=== PATIENT | male | born 1990 | race Caucasian/White ===

== ENCOUNTER → 2018-05-16 07:30 | Outpatient (CLI) | payer OTHER, SELFPAY ==
--- NOTE | 2018-05-16 07:30 | MASS_PTH ---
PATIENT: MANUEL GONZALEZ LOC: [facility] U#:[id number] AGE/SX: 34/M ROOM: RE05/16/[address]: Dr. Umang Pizarro MD : 1990 BED: DIS: SPEC #: [id number] RECD: 05/18/18 07:14 STATUS: MICHAEL JERILYN #: [id number] MELY: 05/16/18 07:[address]: Umang Pizarro DEPT: SURGICAL PATHOLOGY RECD BY: Luana Muhammad ENTERED: 05/18/18 11:07 SP TYPE: Mass OTHR DR: No Primary Care Phys Tissues: Scrotum, NOS Procedures: Surgery Specimen Level III HEADER OPERATION: Excision scrotal nodule PRE-OP DIAGNOSIS: Right scrotal nodule TISSUE SUBMITTED: Right scrotal nodule MICROSCOPIC DIAGNOSIS Right scrotal nodule, biopsy: Epidermal inclusion cyst. SJ:lópez 05/19/18 MICROSCOPIC DESCRIPTION Slides are reviewed. GROSS DESCRIPTION Received in fixative is one container labeled with the patient's name and designated scrotal nodule. The specimen consists of an ellipse of light ramsey soft tissue measuring 1.7 x 1.2 x 1 cm. The specimen is bisected to reveal cheesy white material. The specimen is totally submitted in one cassette. / AM:lópez 05/18/18 TC:5 CPT: 77003
[2018-05-16 07:36] VITALS: BMI 23.2
== END ==
PROVIDERS: Referring Provider Surgery; Visit Provider Surgery
DX: N49.2 Inflammatory disorders of scrotum (principal)
CPT/HCPCS: 88304; 88305

== ENCOUNTER → 2018-12-07 10:42 | Outpatient (CLI) | payer OTHER, SELFPAY ==
[2018-12-07 06:37] VITALS: BMI 23.2
== END ==
PROVIDERS: Referring Provider Physician Assistant Surgical; Visit Provider Physician Assistant Surgical
DX: J02.9 Acute pharyngitis, unspecified (principal)
CPT/HCPCS: 87070; 87077

== ENCOUNTER 2018-12-10 13:43 | Emergency (ER) | payer OTHER, SELFPAY ==
[2018-12-07 06:37] VITALS: BMI 23.2
[2018-12-10 13:43] VITALS: BP 124/74; PULSE 67; RESP 20; TEMP 36.7; O2SAT 98; BMI 23.6
--- NOTE | 2018-12-10 13:58 | RAD_ITS ---
EXAM DESCRIPTION: PORTABLE AP CHEST CLINICAL HISTORY: 28 years Male, COMPARISON: None FINDINGS: The thorax is intact. The heart and mediastinum appear to be within normal limits. The lungs appear to be well areated without evidence of pneumonic consolidation or pleural effusion. RAD/Chest PA and Lateral IMPRESSION: Normal portable chest. Electronically Signed: Vinod Loretta, at 15:05 EDT Tel , Service support ,
[2018-12-10 14:09] VITALS: TEMP 36.6
--- NOTE | 2018-12-10 14:25 | ED.VISSUMM ---
- ER Visit Summary Date of Service: 12/10/18 Chief Complaint: Sore throat History of Present Illness: The patient is a 28 M with no primary care physician. He reports he has a sore throat that began 8 days ago. States that a sharp pain that stated 10 at worst and 2 out of 10 currently. Pain is worse when he wakes up in the morning. Is also worsened by swallowing. Is taken ibuprofen with significant relief. Patient reports that the onset of this he took Augmentin for 4 days. He has not had this for 3 days. [facility] and was placed on amoxicillin. He reports that his last dose of this was this morning. He does not seem to be helping. He was called by the urgent care today and told that his throat culture was positive for Haemophilus influenza. On review of systems patient denies any fever or chills. He does report that he has a cough that is productive of clear/green sputum without blood. He denies any chest pain or trouble breathing. He denies any other complaints. Physical Examination: Vitals: Stable. Afebrile. General: Well-nourished and well-developed. Head: Normocephalic atraumatic. HEENT: Pharyngeal erythema. No tonsillar exudate or enlargement. He has no pain with movement of his trachea. Neck: Supple, no lymphadenopathy. No JVD. Nontender. Cardiovascular: Regular rate and rhythm. No murmurs. Respiratory: No respiratory distress. Clear to auscultation bilaterally. Abdominal: Soft, nontender, nondistended, normal bowel sounds. No guarding, rebound, or peritoneal signs. Back: Nontender. Extremities: Nontender, no edema. Skin: Normal color, no rash. Neurologic: Alert and oriented ?3. Cranial nerves II through XII are intact. Normal strength and sensation. Psych: Normal affect. Test Results: Chest x-ray shows no acute disease. Emergency Department Course and Treatment: Patient's throat culture was reviewed. He was given a dose of cefdinir here. He is resting comfortably. Treatment Plan: Patient will be discharged on Ceftin ear. Instructed to follow-up Dr. Americo Burgess in 1 week for another exam. The signs and symptoms of epiglottitis were discussed and the patient was instructed return for any worsening symptoms. Disposition: To home in improved and stable condition. Impression: 1. Pharyngitis, Haemophilus influenza. 2. URI. This note was generated with [employer] dictation software. It may contain incorrect words, spelling, and punctuation that were not noted in review of the chart prior to signing ED Disposition - Plan for ED Patient: Disposition: Home or Assisted Living Instructions: Self-Care for Sore Throats Prescriptions: Cefdinir 300 mg PO BID #20 cap Prescription Printed Referrals: Americo Lyon MD [STAFF PHYSICIAN] - 1 Week
[2018-12-10] MEDS: Cefdinir 300 MG Capsule PO (15:00)
[2018-12-10 15:04] VITALS: TEMP 37
[2018-12-10 15:36] VITALS: BP 120/72; PULSE 74; RESP 18; O2SAT 98
== END 2018-12-10 15:37 | disposition home or self-care (01) ==
PROVIDERS: Emergency Provider Emergency Medicine
DX: J10.1 Influenza due to other identified influenza virus with other respiratory manifestations (principal); J02.9 Acute pharyngitis, unspecified; Z72.0 Tobacco use
CPT/HCPCS: 71046; 99283; A4216

== ENCOUNTER → 2019-11-29 12:23 | Outpatient (CLI) | payer OTHER, SELFPAY ==
[2019-11-29 11:13] VITALS: BMI 23.6
--- NOTE | 2019-11-29 12:37 | EKG12_ITS ---
Test Reason : ROUTINE Blood Pressure : / mmHG Vent. Rate : 050 BPM Atrial Rate : 050 BPM P-R Int : 146 ms QRS Dur : 082 ms QT Int : 408 ms P-R-T Axes : 000 062 048 degrees QTc Int : 371 ms Sinus bradycardia Otherwise normal ECG Confirmed by ROXANA MALAVE, JOSE ANTONIO ([id number]), news video editor MARY KATE THOMAS ([id number]) on 11/30/2019 11:24:53 AM Referred By: Maribeth Schaeffer Confirmed By:JOSE ANTONIO SCHMIDT MD
[2019-11-29 14:10] LABS: Absolute Lymphocyte Count 1.87 X10^3/uL (0.83-4.51); Basophil# 0.04 X10^3/uL; Basophil% 0.7 % (0-1); Eosinophil# 0.41 X10^3/uL; Eosinophils% 6.9 % (0-5); Hematocrit 47.9 % (40-54); Hemoglobin 15.8 g/dL (13.0-16.5); Lymphocyte # 1.87 X10^3/ul (4.0); Lymphocyte % 31.5 % (19-41); Mean Corpuscular Volume 91.1 fL (80-94); Mean Platelet Vol. 10.3 fl (6.2-12.0); Monocyte# 0.59 X10^3/uL; Monocyte% 9.9 % (0-10); NRBC Flagged by Analyzer 0 % (0-5); Neutrophil # 3.02 X10^3/uL (2.7-7.7); Neutrophil % 50.8 % (47-70); Platelet Count 194 K/mm3 (150-450); RBC Distribution Width CV 12.3 % (11.6-14.6); RBC Distribution Width SD 40.7 fl (35.1-43.9); Red Blood Count 5.26 M/mm3 (4.6-6.2); White Blood Count 5.9 K/mm3 (4.4-11.0)
[2019-11-29 14:35] LABS: ALB/GLOB Ratio 1.2 RATIO (0.9-2.4); AST(SGOT) 16 U/L (15-37); Alanine Aminotransfer ALT/SGPT 32 U/L (16-61); Albumin, Serum 4.2 g/dL (3.2-5.0); Alkaline Phosphatase 84 U/L (45-117); Anion Gap 4 (5-15); BUN 13 mg/dL (7-18); BUN/Creat Ratio 14.3 RATIO (10-20); Calcium,Total 9.3 mg/dL (8.5-10.1); Chloride 106 mmol/L (98-107); Cholesterol 150 mg/dL (200); Creatinine, Serum 0.91 mg/dL (0.70-1.30); EST Glomerular Filtration Rate 105 mL/min (>60); Est Glom Filt Rate - Afr Amer 127 mL/min (>60); Free T3 2.6 pg/mL (2.18-3.98); Globulin 3.5 g/dL (2.2-4.2); Glucose 81 mg/dL (74-106); High Density Lipoprotein 62 mg/dL; Potassium 3.6 mmol/L (3.5-5.1); Protein, Total 7.7 g/dL (6.4-8.2); Sodium Level 137 mmol/L (136-145); T4 Free Direct 0.93 ng/dL (0.76-1.46); Thyroid Stim Hormone (TSH) 1.29 uIU/mL (0.358-3.74); Triglycerides 98 mg/dL; Very Low Density Lipoprotein 20 mg/dL (5-40)
== END ==
PROVIDERS: PCP Internal Medicine; Referring Provider Internal Medicine; Visit Provider Internal Medicine
DX: R07.9 Chest pain, unspecified (principal); R61 Generalized hyperhidrosis; Z13.220 Encounter for screening for lipoid disorders
CPT/HCPCS: 36415; 80053; 80061; 84439; 84443; 84481; 85025; 93005

== ENCOUNTER → 2019-12-06 09:42 | Outpatient (CLI) | payer OTHER, SELFPAY ==
[2019-11-29 11:13] VITALS: BMI 23.6
--- NOTE | 2019-12-06 12:35 | STRESSREP ---
Stress Test Report Exercise stress test. 29-year-old man with a history of chest pain. Stress protocol: Resting EKG demonstrates normal sinus rhythm with a rate of 48 bpm normal intervals are noted resting blood pressure is 100/70 mmHg. The patient exercised according to the regular Nj protocol for a total duration of 15 minutes completing stage V of the Nj protocol. The maximum heart rate attained was 179 bpm which was 93% of maximum predicted heart rate the maximum workload was 17.2 metabolic equivalents. The patient maintained sinus rhythm throughout the recording. At rest there were no ST or T wave changes noted to suggest ischemia at peak exercise upsloping ST changes were noted we did not meet the criteria for ischemia. No clinical angina was noted the test was terminated due to attainment of target heart rate. The peak blood pressure was 146/60 mmHg. Rate-pressure product was 26,100. Conclusion: Exercise stress test with no EKG criteria for ischemia at a high workload. Good functional capacity.
== END ==
PROVIDERS: PCP Internal Medicine; Referring Provider Internal Medicine; Visit Provider Internal Medicine
DX: R07.89 Other chest pain (principal)
CPT/HCPCS: 93017

== ENCOUNTER → 2019-12-30 17:18 | Outpatient (CLI) | payer OTHER, SELFPAY ==
[2019-11-29 11:13] VITALS: BMI 23.6
== END ==
PROVIDERS: PCP Internal Medicine; Referring Provider Internal Medicine; Visit Provider Internal Medicine
DX: Z11.59 Encounter for screening for other viral diseases (principal)
CPT/HCPCS: 87635; C9803; U0003

== ENCOUNTER 2020-07-14 09:39 | Emergency (ER) | payer OTHER, SELFPAY ==
[2019-11-29 11:13] VITALS: BMI 23.6
[2020-07-14 09:41] VITALS: BP 128/71; PULSE 62; RESP 16; TEMP 36.3; O2SAT 99; BMI 22.6
--- NOTE | 2020-07-14 09:54 | CT_ITS ---
STUDY: CT ABDOMEN AND PELVIS WITHOUT CONTRAST REASON FOR EXAM: Male, 30 years old. Kidney Stone. Left lower quadrant pain. RADIATION DOSAGE (If Supplied By Facility): CTDIvol = ( 6.52 ) mGy, DLP = ( 348.60 ) mGycm TECHNIQUE: Transaxial images were obtained from the dome of the diaphragm to the symphysis pubis without oral contrast, and without intravenous contrast. Sagittal and coronal images were reconstructed. Individualized dose optimization techniques were used for this CT. COMPARISON: None. FINDINGS: The visualized lung bases are unremarkable. The visualized portions of the heart are within normal limits. Normal liver. Normal gallbladder and extrahepatic biliary system. Normal spleen. Normal pancreas. Normal bilateral adrenal glands. Normal right kidney. Normal left kidney. Normal visualized stomach. Normal small intestine. Normal colon. There are surgical clips in the region of the appendix consistent with a prior appendectomy. Normal abdominal aorta. Normal inferior vena cava. Normal retroperitoneum. Normal urinary bladder. Normal abdominal wall. Normal osseous structures. CT/Abdomen/Pelvis without Cont IMPRESSION: Normal unenhanced CT of the abdomen and pelvis. Electronically Signed: Ant Meneses MD at 10:54 EDT , Service support ,
--- NOTE | 2020-07-14 09:56 | EDS_ITS ---
HPI History of Present Illness Chief Complaint: Abd Pain Informant: patient Onset/Context/Timing Onset: Today Context: Sudden Onset Timing: Waxes and wanes Current Severity: Moderate Maximum Severity: Severe Narrative Narrative: Patient presents with left lower abdominal pain. Patient states he woke abruptly at 1 AM this morning with severe pain in his left lower quadrant and left testicle. He states it felt like he had been kicked. He states he felt very nauseated. Severe pain lasted approximate 20 minutes and then started to subside. Since that time he had a aching sensation in the left lower quadrant. He rates his pain a 4 out of 10. No further nausea. No fever or chills. PFSH PFSH Medical History Back pain Hx of scrotal mass Seasonal allergies Skin lesion Smoker Home Medications NK 11/29/19 [History Last Taken Unknown] Allergy/AdvReac Type Severity Reaction Status Date / Time No Known Allergies Allergy Verified 07/14/20 09:40 Family History (Updated 11/29/19 @ 11:02 by Twyla Marie) Mother No problems noted. Grandmother COPD (chronic obstructive pulmonary disease) Surgical History History of appendectomy Social History Smoking Status: Current every day smoker Electronic Cigarette Use: with nicotine alcohol intake: current alcohol intake frequency: holidays/special occasions only substance use type: marijuana what type of physical activity do you participate in: none ROS ROS ED Constitutional Constitutional ED: Denies chills or fever(s) Eyes Eyes: Denies change in vision ENT ENT ED: Denies sore throat Cardiovascular Cardiovascular: Denies chest pain Respiratory/Chest Respiratory/Chest: Denies cough or dyspnea Gastrointestinal Gastrointestinal: Reports abdominal pain and nausea; Denies diarrhea or vomiting Genitourinary Genitourinary ED: Denies dysuria, hematuria or urinary frequency Musculoskeletal Musculoskeletal: Denies back pain Integumentary Denies rash Neurologic Neurologic: Denies headache(s) or weakness Psychiatric Psychiatric: Denies anxiety or depression Endocrine Endocrinology: Denies polydipsia or polyuria Allergic/Immunologic Allergic/Immunologic ED: Denies urticaria EXAM Physical Exam Const Vital Signs: 07/14/20 09:41 07/14/20 12:39 07/14/20 13:19 Temperature 97.3 F L Temperature Source Temporal Pulse Rate 62 61 62 Respiratory Rate 16 18 15 Blood Pressure 128/71 H 111/72 131/74 H Blood Pressure Mean 90 85 Pulse Ox 99 98 98 Oxygen Delivery Method Room Air Positive well nourished and well developed General Appearance ED: well developed HEENT Reports normocephalic and head/scalp atraumatic Eyes PERRL and EOMs intact bilaterally Neck supple Chest Wall inspection of chest normal and palpation of chest normal Resp normal respiratory effort and clear to auscultation bilaterally Cardio regular rate and regular rhythm GI normal to inspection, nondistended, normoactive bowel sounds Palpation: soft and tender LLQ; Negative for guarding or rebound tenderness present Back/Spine no CVA tenderness Extremity normal to inspection Neuro oriented x3 and no sensory deficits noted Sensorium / Orientation: alert Motor Exam: strength 5/5 throughout Psych mental status grossly normal Skin no rashes or lesions noted MDM MDM MDM Narrative Medical decision making narrative: Patient declined anything for pain while here. Lab Data Attestation: I reviewed the patient's lab results. Labs: Laboratory Results - last 24 hr 07/14/20 07/14/20 07/14/20 10:00 10:00 11:15 WBC 6.9 RBC 5.10 Hgb 14.9 Hct 45.5 MCV 89.2 MCH 29.2 MCHC 32.7 RDW Std Deviation 40.5 RDW Coeff of Gm 12.2 Plt Count 187 MPV 9.5 Immature Gran % (Auto) 0.300 Neut % (Auto) 56.9 Lymph % (Auto) 26.2 [place] % (Auto) 11.4 H Eos % (Auto) 4.6 Baso % (Auto) 0.6 Absolute Neuts (auto) 3.9 Absolute Lymphs (auto) 1.81 Nucleated RBC % 0 Sodium 138 Potassium 4.2 Chloride 107 Carbon Dioxide 29.0 Anion Gap 2 L BUN 15 Creatinine 1.10 Estim Creat Clear Calc 105.14 Est GFR (MDRD) Af Amer 101 Est GFR (MDRD) Non-Af 83 BUN/Creatinine Ratio 13.6 Glucose 101 Calcium 9.5 Urine Color Yellow Urine Clarity Cloudy Urine pH 7.0 Ur Specific [place] 1.015 Urine Protein 15 H Urine Glucose (UA) Normal Urine Ketones Negative Urine Occult Blood 10 H Urine Nitrite Negative Urine Bilirubin Negative Urine Urobilinogen Normal Ur Leukocyte Esterase Negative Urine RBC 0 SEEN Urine WBC 0 SEEN Ur Squamous Epith Cells 0 SEEN Amorphous Sediment 2+ Urine Bacteria 0 SEEN Urine Mucus 0 SEEN Radiography Diagnostic Testing: Radiology Impression Abdomen/Pelvis CT 07/14/20 09:54 IMPRESSION: Normal unenhanced CT of the abdomen and pelvis. Electronically Signed: Ant Meneses MD at 10:54 EDT , Service support , Testicular Ultrasound 07/14/20 11:20 IMPRESSION: Moderate bilateral hydroceles. Enlargement of the left epididymal head. Small left varicocele. Electronically Signed: Ant Meneses MD at 12:29 EDT , Service support , Treatment and Re-Evaluation Comments:: Patient's blood work is unremarkable. Urinalysis shows no acute sign of infection. No blood noted in the urine. CT flank is unremarkable with no obvious kidney stone. Patient then underwent testicular ultrasound. Hydrocele is noted along with small left varicocele. These would typically not cause sudden severe pain. At this point pain is improved but not completely resolved. He will continue to monitor his symptoms. He will follow with his PCP this week. I also referred him to Dr. Sullivan for follow-up as needed. Discharge Plan Triage Chief Complaint: Abd Pain ED Provider: Sachi George Dx/Rx/DC Orders Clinical Impression: Abdominal pain Instructions: ED Unknown Causes of Abdominal ... Prescriptions: No Action NK RF: 0 Primary Care Provider: Maribeth Schaeffer Referrals: Darren Sullivan MD [STAFF PHYSICIAN] - As Needed Maribeth Schaeffer MD [Primary Care Provider] - Disposition Disposition: Home, self care Discharge Date/Time: 07/14/20 13:20
[2020-07-14] MEDS: 0.9% Normal Saline 1,000 ML 250 ML IV (10:09)
[2020-07-14 10:19] LABS: Absolute Lymphocyte Count 1.81 X10^3/uL (0.83-4.51); Absolute Neutrophil Count 3.9 X10^3/uL (2.0-7.7); Basophil# 0.04 X10^3/uL; Basophil% 0.6 % (0-1); Eosinophil# 0.32 X10^3/uL; Eosinophils% 4.6 % (0-5); Hematocrit 45.5 % (40-54); Hemoglobin 14.9 g/dL (13.0-16.5); Lymphocyte # 1.81 X10^3/ul (0.83-4.51); Lymphocyte % 26.2 % (19-41); Mean Corp Hgb Conc 32.7 g/dL (32-36); Mean Corpuscular Hgb 29.2 pg (27.0-32.0); Mean Corpuscular Volume 89.2 fL (80-94); Mean Platelet Vol. 9.5 fl (6.2-12.0); Monocyte# 0.79 X10^3/uL; Monocyte% 11.4 % (0-10); NRBC Flagged by Analyzer 0 % (0-5); Neutrophil # 3.93 X10^3/uL (2.7-7.7); Neutrophil % 56.9 % (47-70); Platelet Count 187 K/mm3 (150-450); RBC Distribution Width CV 12.2 % (11.6-14.6); RBC Distribution Width SD 40.5 fl (35.1-43.9); White Blood Count 6.9 K/mm3 (4.4-11.0)
[2020-07-14 10:26] LABS: Anion Gap 2 (5-15); BUN 15 mg/dL (7-18); BUN/Creat Ratio 13.6 RATIO (10-20); Calcium,Total 9.5 mg/dL (8.5-10.1); Chloride 107 mmol/L (98-107); EST Glomerular Filtration Rate 83 mL/min (>60); Est Glom Filt Rate - Afr Amer 101 mL/min (>60); Estimated Creatinine Clearance 105.14 ml/min; Glucose 101 mg/dL (74-106); Potassium 4.2 mmol/L (3.5-5.1); Sodium Level 138 mmol/L (136-145)
[2020-07-14 11:18] LABS: Bacteria 0 SEEN /hpf (None Seen); Mucous, Urine 0 SEEN /hpf (<or=2+); Red Blood Cells-Urine 0 SEEN /hpf (0-5); Squamous Epithelial Cells - UA 0 SEEN /hpf (0-5); White Blood Cells 0 SEEN /hpf (0-5)
[2020-07-14 11:20] LABS: Color, Urine Yellow (Yellow); Glucose, Dipstick Normal (Normal); Ketone-Dipstick Negative (Negative); Leukocyte Esterase-Dipstick Negative /ul (Negative); Nitrite-Dipstick Negative (Negative); Occult Blood-Urine 10 /ul (Negative); Protein-Dipstick 15 mg/dl (Negative); Specific Gravity, Urine 1.015 (1.002-1.030); Urine Bilirubin Dipstick Negative (Negative); Urine Clarity Cloudy (Clear); Urine Urobilinogen Normal (Normal)
--- NOTE | 2020-07-14 11:20 | US_ITS ---
STUDY: SCROTUM ULTRASOUND REASON FOR EXAM: Male, 30 years old. One day history of left testicular pain. TECHNIQUE: Ultrasound evaluation of the scrotum was performed with color Doppler and static childs-scale imaging. COMPARISON: None. FINDINGS: RIGHT TESTICLE INTRATESTICULAR: There is a normal size of the right testicle. The right testicle measures 4.5 cm x 3.5 cm x 3.1 cm. There is a homogenous echotexture. There is normal arterial and normal venous vascularity. There is no demonstrated right testicular mass or cyst. EXTRATESTICULAR: The epididymis is normal in size. The epididymis head measures 2.9 cm x 1.2 cm x 1.4 cm. There is normal vascularity of the epididymis. There is no demonstrated epididymal cystic structure. There is a moderate size hydrocele. There is no demonstrated varicocele. There is no demonstrated extratesticular mass or cyst. LEFT TESTICLE INTRATESTICULAR: There is a normal size of the left testicle. The left testicle measures 4.4 cm x 3.3 cm x 3 cm. There is a homogenous echotexture. There is normal arterial and normal venous vascularity. There is no demonstrated left testicular mass or cyst. EXTRATESTICULAR: The epididymis is enlarged. The epididymis head measures 1.2 cm x 1.7 cm x 0.8 cm. There is normal vascularity of the epididymis. There is no demonstrated epididymal cystic structure. There is a moderate size hydrocele. There are prominent extratesticular veins consistent with a varicocele. There is no demonstrated extratesticular mass or cyst. US/Testicular with Arterial Flow IMPRESSION: Moderate bilateral hydroceles. Enlargement of the left epididymal head. Small left varicocele. Electronically Signed: Ant Meneses MD at 12:29 EDT , Service support ,
[2020-07-14 11:25] LABS: Amorphous Sediment 2+
[2020-07-14 12:39] VITALS: BP 111/72; PULSE 61; RESP 18; O2SAT 98
[2020-07-14 13:19] VITALS: BP 131/74; PULSE 62; RESP 15; O2SAT 98
== END 2020-07-14 13:20 | disposition home or self-care (01) ==
PROVIDERS: Emergency Provider Emergency Medicine; PCP Internal Medicine
DX: R10.9 Unspecified abdominal pain (principal); N43.3 Hydrocele, unspecified; I86.1 Scrotal varices; F17.290 Nicotine dependence, other tobacco product, uncomplicated
CPT/HCPCS: 74176; 76870; 80048; 81001; 85025; 93976; 96360; 96361; 99283; J7030

== ENCOUNTER 2021-04-24 16:40 | Outpatient (CLI) | payer OTHER, SELFPAY ==
--- NOTE | 2021-04-24 15:00 | VAS_PTH ---
PATIENT: MANUEL GONZALEZ LOC: [facility] U#:[id number] AGE/SX: 30/M ROOM: RE04/24/[address]: Dr. Umang Pizarro MD : 1990 BED: DIS: 04/24/2021 SPEC #: [id number] RECD: 04/24/21 16:08 STATUS: MICHAEL REYuli #: [id number] MELY: 04/24/21 15:[address]: Umang Pizarro DEPT: SURGICAL PATHOLOGY RECD BY: Uma Michelle ENTERED: 04/25/21 09:15 SP TYPE: VAS OTHR DR: Dr. Maribeth Schaeffer MD Tissues: A - Vas deferens, NOS B - Vas deferens, NOS Procedures: Surgery Specimen Level II HEADER OPERATION: Bilateral partial vasectomy PRE-OP DIAGNOSIS: Sterilization TISSUE SUBMITTED: A ? Right vas deferens, B ? Left vas deferens MICROSCOPIC DIAGNOSIS A. Right vas deferens, segmental vasectomy: Complete cross-section of vas deferens with no pathologic change. B. Left vas deferens, segmental vasectomy: Complete cross-section of vas deferens with no pathologic change. AM:lópez 04/26/2021 MICROSCOPIC DESCRIPTION Slides are reviewed. GROSS DESCRIPTION A - Received is one container designated right vas deferens. The specimen consists of a cylindrical segment of pink-ramsey soft tissue measuring 1.3 cm in length and 0.2 cm in maximum diameter. The specimen is totally submitted in one cassette. B - Received is one container designated left vas deferens. The specimen consists of a cylindrical segment of pink-ramsey soft tissue measuring 1.2 cm in length and 0.2 cm in maximum diameter. The specimen is totally submitted in one cassette. / AM:lópez 04/25/2021 TC:4 CPT: 17089 x2
== END 2021-04-24 23:59 | disposition home or self-care (01) ==
LOC: LABSPEC 16:41
PROVIDERS: PCP Internal Medicine; Visit Provider Surgery
DX: Z30.2 Encounter for sterilization (principal)
CPT/HCPCS: 88302